=== PATIENT | female | born 1990 | race Caucasian/White ===

== ENCOUNTER → 2017-11-19 | Outpatient (CLI) | payer SELFPAY ==
--- NOTE | 2017-11-19 14:51 | RADIOLOGY REPORT (SQ) ---
EXAM DESCRIPTION: U/S [id number] TRNABD 1GES W/ODOP COMPLETED DATE/TIME: 11/19/2017 2:13 pm REASON FOR STUDY: ENCTR FOR SUPERVISION OF NORMAL 1ST , 1ST TRIMESTER (Z34.01) Z34.01 ENCN TR FOR SUPRVSN OF NORMAL FIRST PREG, FIRST TRIMES COMPARISON: None. TECHNIQUE: Transabdominal static and realtime grayscale images acquired of the pelvis. Additional se lected spectral and color Doppler images recorded. All images stored on PACs. bHCG: Not applicable. CLINICAL DATES: LMP 09/11/2017. 9 weeks 6 days. LIMITATIONS: None. FINDINGS: FETUS: Living intrauterine . ULTRASOUND EGA: 10 weeks 1 day ULTRASOUND MILLICENT: 06/16/2018 CRL: 3.2 cm. FHR: 163 beats per minute. SUBCHORIONIC BLEED: No SIZE OF BLEED: Not applicable. UTERUS: No masses or anomalies. 13 x 6.7 x 10.3 cm. CERVICAL LENGTH: 4.5 cm. Closed. RIGHT ADNEXA: Ovary not seen. No adnexal free fluid. No adnexal masses. LEFT ADNEXA: Ovary not seen. No adnexal free fluid. No adnexal masses. FREE FLUID: None. OTHER: No other significant finding. IMPRESSION: LIVING INTRAUTERINE . EGA 10 weeks 1 day Trimester of : First - 0 to 13 weeks. TECHNICAL DOCUMENTATION: JOB ID: [id number] [employer]- All Rights Reserved rev-09/03 Reading location - IP/workstation name: [email or web address]
== END ==
LOC: RAD 13:40
PROVIDERS: ATTEND Nurse Practitioner Women's Health
DX: Z34.01 Encounter for supervision of normal first pregnancy, first trimester (principal)
CPT/HCPCS: 76801

== ENCOUNTER 2018-06-12 18:20 | Inpatient (IN) | payer BC, OTHER ==
[2018-06-12] MEDS ORDERED: DINOPROSTONE 10 MG VAGINAL INSERT.SR PV PRN (18:37)
[2018-06-12] MEDS ORDERED: OXYTOCIN/NORMAL SALINE 20 UNIT/1,000 ML RTUINJ IV PRN (18:37)
[2018-06-12] MEDS ORDERED: RINGERS SOLUTION,LACTATED 300 ML IV ONE (19:00)
[2018-06-12 19:13] LABS: ABSOLUTE BASOPHILS # (AUTO) 0.1 10^3/uL (0.0-0.2); ABSOLUTE EOSINOPHILS # (AUTO) 0.2 10^3/uL (0.0-0.6); ABSOLUTE LYMPHOCYTES (AUTO) 1.5 10^3/uL (0.5-4.7); ABSOLUTE MONOCYTES (AUTO) 0.7 10^3/uL (0.1-1.4); ABSOLUTE NEUT (AUTO) 9.1 10^3/uL (1.7-8.2); BASOPHILS % (AUTO) 0.5 % (0-2); EOSINOPHILS % (AUTO) 1.7 % (0-6); HEMATOCRIT 33.7 % (36.0-47.0); HEMOGLOBIN 11.3 g/dL (12.0-15.5); LYMPHOCYTES % (AUTO) 12.7 % (13-45); MEAN CORPUSCULAR HEMOGLOBIN 27.1 pg (27.0-33.4); MEAN CORPUSCULAR HGB CONC 33.4 g/dL (32.0-36.0); MEAN CORPUSCULAR VOLUME 81 fl (80-97); MONOCYTES % (AUTO) 6.3 % (3-13); PLATELET COUNT 314 10^3/uL (150-450); RED BLOOD COUNT 4.15 10^6/uL (3.72-5.28); RED CELL DISTRIBUTION WIDTH 14.9 % (11.5-14.0); SEGMENTED NEUTROPHILS % (AUTO) 78.8 % (42-78); TOTAL CELLS COUNTED % (AUTO) 100 %; WHITE BLOOD COUNT 11.5 10^3/uL (4.0-10.5)
[2018-06-12 19:26] LABS: APPEARANCE,URINE SLIGHTLY-CLOUDY; BILIRUBIN,URINE NEGATIVE (NEGATIVE); COLOR,URINE YELLOW; GLUCOSE, URINE NEGATIVE (NEGATIVE); KETONES,URINE NEGATIVE (NEGATIVE); LEUKOCYTE ESTERASE,URINE TRACE (NEGATIVE); NITRITE,URINE NEGATIVE (NEGATIVE); PROTEIN,URINE NEGATIVE (NEGATIVE); URINE SPECIFIC GRAVITY 1.009; UROBILINOGEN,URINE NEGATIVE mg/dL (<2.0)
[2018-06-12] MEDS ORDERED: DINOPROSTONE 10 MG VAGINAL INSERT.SR ONE (19:36)
[2018-06-12 19:42] LABS: URINE AMPHETAMINES SCREEN NEGATIVE; URINE BARBITURATES SCREEN NEGATIVE; URINE BENZODIAZEPINES SCREEN NEGATIVE; URINE COCAINE SCREEN NEGATIVE; URINE MARIJUANA (THC) SCREEN NEGATIVE; URINE METHADONE SCREEN NEGATIVE; URINE PHENCYCLIDINE SCREEN NEGATIVE
[2018-06-12] MEDS: RINGERS SOLUTION,LACTATED 1,000 ML IV PRN (19:45)
[2018-06-12] MEDS ORDERED: ZOLPIDEM TARTRATE 5 MG TABLET ONE (22:27)
[2018-06-12] MEDS ORDERED: ZOLPIDEM TARTRATE 5 MG TABLET PO ONE (23:00)
[2018-06-13] MEDS: RINGERS SOLUTION,LACTATED 1,000 ML IV PRN (06:37)
[2018-06-13] MEDS ORDERED: OXYTOCIN/NORMAL SALINE 20 UNIT/1,000 ML RTUINJ ONE (09:18)
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
[2018-06-13] MEDS ORDERED: OXYTOCIN/NORMAL SALINE 20 UNIT/1,000 ML RTUINJ IV PRN (18:30)
[2018-06-13] MEDS ORDERED: ZOLPIDEM TARTRATE 5 MG TABLET PO PRN (18:30)
[2018-06-13] MEDS ORDERED: MAG HYDROX/AL HYDROX/SIMETH SUSP 30 ML UDCUP PO PRN (18:30)
[2018-06-13] MEDS ORDERED: ACETAMINOPHEN 325 MG TABLET PO PRN (18:30)
[2018-06-13] MEDS ORDERED: DINOPROSTONE 10 MG VAGINAL INSERT.SR ONE (19:55)
[2018-06-13] MEDS ORDERED: DINOPROSTONE 10 MG VAGINAL INSERT.SR PV ONE (20:00)
[2018-06-13] MEDS ORDERED: ZOLPIDEM TARTRATE 5 MG TABLET ONE (22:02)
[2018-06-14] MEDS: RINGERS SOLUTION,LACTATED 1,000 ML IV PRN ×2 (09:41→21:02)
[2018-06-14] MEDS ORDERED: OXYTOCIN/NORMAL SALINE 20 UNIT/1,000 ML RTUINJ ONE (11:58)
--- NOTE | 2018-06-14 12:33 | L&D Progress Notes ---
PROGRESS NOTES Datetime Report Generated by CPN: 06/14/2018 12:32 PROGRESS NOTE Impression: Normal Progression of Labor Procedures: Sterile Vag Exam Plan: Continue Present Management; Induction; Cervical Ripening Informed Consent Obtained: Vaginal Delivery; Induction of Labor; Risks, Benefits and Alternatives Discussed Vital Signs : Reviewed Comment: Here for day two of IOL. Cvx 1/50/-3 and posterior but soft. Cooks catheter placed. Anticipate . VAGINAL EXAM Dilatation: 1 Effacement: 50 Station: -3 Contractions: q 2-5 Contractions: q 1.5-3.5 mins LAST VAGINAL EXAM-NURSING Dilitation: 1.0 Dilitation: 0.5 Dilitation: 0.5 Dilitation: ft Dilitation: closed Effacement: 70 Effacement: 70-80 Effacement: long Effacement: TH Station: -2 Station: -3 Station: -3 Station: HIGH Contractions: with irritability Contractions: irregular pattern Contractions: pt. aware of ctn's Contractions: pt. denies feeling ctn's MEMBRANES Membranes: Intact Membranes: Intact FETUS A FHR - Baseline: 135 Monitoring: External US Variability: Moderate 6-25bpm Accelerations: 15X15 Decelerations: None FHR Category: Category I : 39+2 Estimated Weight (gm): 3400 Presentation: Vertex SIGNATURE SIGNATURE: [id number];,[id number] SIGNATURE: [id number] Signature: with User ID: [email or web address]
[2018-06-14] MEDS ORDERED: OXYTOCIN/NORMAL SALINE 20 UNIT/1,000 ML RTUINJ IV PRN (12:40)
[2018-06-14] MEDS ORDERED: NALBUPHINE HCL INJ 10 MG/1 ML AMPULE ONE (15:34)
[2018-06-14] MEDS ORDERED: NALBUPHINE HCL INJ 10 MG/1 ML AMPULE INJ ONE (15:34)
[2018-06-14] MEDS ORDERED: EPHEDRINE SULFATE INJ 50 MG/1 ML AMPULE ONE (18:11)
[2018-06-14] MEDS ORDERED: FENTANYL/BUPIVACAINE/NS/PF 300 MCG/150 ML RTUINJ EPI ONE (18:11)
[2018-06-14] MEDS ORDERED: LIDOCAINE 1.5%/EPINEPHRINE INJ-PF 30 ML SDV ONE (18:12)
[2018-06-14] MEDS ORDERED: BUPIVACAINE HCL 0.25 % INJ/PF (2.5 MG/1 ML) 30 ML VIAL ONE (18:12)
--- NOTE | 2018-06-14 18:29 | L&D Progress Notes ---
PROGRESS NOTES Datetime Report Generated by CPN: 06/14/2018 18:29 PROGRESS NOTE Impression: Normal Progression of Labor Procedures: Sterile Vag Exam Plan: Continue Present Management; Induction; Cervical Ripening Informed Consent Obtained: Vaginal Delivery; Induction of Labor; Risks, Benefits and Alternatives Discussed Vital Signs : Reviewed Comment: pt with more discomfort with contractions. SVE with both bulbs in vagina noted. Cooks deflated and removed. Will complete cervical exam after patient obtains epidural and plan for possibel AROM. Anticipate . LAST VAGINAL EXAM-NURSING Contractions: irregular pattern noted MEMBRANES Membranes: Intact FETUS A FHR - Baseline: 125 Monitoring: External US Variability: Moderate 6-25bpm Accelerations: 15X15 Decelerations: None FHR Category: Category I SIGNATURE SIGNATURE: [id number];[id number] Signature: with User ID: [email or web address]
[2018-06-14] MEDS ORDERED: MISOPROSTOL 0.2 MG TABLET ONE (19:29)
[2018-06-14] MEDS ORDERED: LIDOCAINE 1% INJ-PF (10 MG/ML) 30 ML SDV ONE (19:30)
[2018-06-15] MEDS ORDERED: PSEUDOEPHEDRINE HCL 30 MG TABLET PO PRN (00:32)
[2018-06-15] MEDS ORDERED: PROMETHAZINE HCL 25 MG TABLET PO PRN (00:32)
[2018-06-15] MEDS ORDERED: MAGNESIUM HYDROXIDE SUSP 30 ML UDCUP PO PRN (00:32)
[2018-06-15] MEDS ORDERED: DIPHENHYDRAMINE HCL 25 MG CAPSULE PO PRN (00:32)
[2018-06-15] MEDS ORDERED: PROMETHAZINE HCL 25 MG SUPP.RECT PR PRN (00:32)
[2018-06-15] MEDS ORDERED: ACETAMINOPHEN WITH CODEINE #3 TABLET PO PRN (00:32)
[2018-06-15] MEDS ORDERED: OXYTOCIN/NORMAL SALINE 20 UNIT/1,000 ML RTUINJ IV PRN (00:32)
[2018-06-15] MEDS ORDERED: NA PHOS,M-B/NA PHOS,DI-BA (ADULT) 133 ML ENEMA PR PRN (00:32)
[2018-06-15] MEDS ORDERED: ACETAMINOPHEN 650 MG SUPP.RECT PR PRN (00:32)
[2018-06-15] MEDS ORDERED: PROMETHAZINE HCL INJ 25 MG/1 ML VIAL IV PRN (00:32)
[2018-06-15] MEDS ORDERED: ZOLPIDEM TARTRATE 5 MG TABLET PO PRN (00:32)
[2018-06-15] MEDS ORDERED: MEASLES,MUMPS&RUBELLA VACC/PF 0.5 ML VIAL SUBCUT PRN (00:32)
[2018-06-15] MEDS ORDERED: GLYCERIN/WITCH HAZEL LEAF 1 EACH MED..PAD TP PRN (00:32)
[2018-06-15] MEDS ORDERED: DIBUCAINE 1% OINTMENT 28 GM TP PRN (00:32)
[2018-06-15] MEDS ORDERED: BENZOCAINE/MENTHOL AEROSOL SPRAY 56 ML TOP PRN (00:32)
[2018-06-15] MEDS ORDERED: MISOPROSTOL 0.2 MG TABLET PR PRN (00:32)
[2018-06-15] MEDS ORDERED: DIPH/PERTUSS(ACELL)/TETANUS VAC/PF 0.5 ML SYR (>=10YO) IM PRN (00:32)
--- NOTE | 2018-06-15 00:57 | Warning Signs in Babies ---
VOD Warning Signs Datetime Report Generated by [facility]: 06/15/2018 00:56 VOD#608 -Warning Signs in Babies: Viewed with Parent(s)/Family (06/15/2018 00:30:Emmanuelle Valentino RN)
[2018-06-15] MEDS ORDERED: IBUPROFEN 800 MG TABLET PO ONE (01:00)
[2018-06-15] MEDS ORDERED: BENZOCAINE/MENTHOL AEROSOL SPRAY 56 ML ONE (01:07)
--- NOTE | 2018-06-15 02:31 | Delivery Summary ---
Del Sum A-C Datetime Report Generated by CPN: 06/15/2018 02:31 DELIVERY PERSONNEL DELIVERY PERSONNEL: [id number] Delivery Doctor:: Kenya Hoang MD Labor and Delivery Nurse:: Emmanuelle Valentino RN Nursery Nurse:: Tammie Wolff RN Dock Coordinator/HORSE STUD WORKER: Jeni Baires, TENONER OPERATOR Additional Personnel: : Susana Art RN MATERNAL INFORMATION Delivery Anesthesia: Epidural Medications After Delivery: Pitocin Drip 20 Units/1000ml NSS; Cytotec 1000mcg Per Rectum/Vagina Maternal Complications: None Provider Comments: VFI delivered in CED presentation with nuchal cord delivered through. Shoulders and body delivered without difficulty. cord doubly clamped and cut and to maternal abdomen for NRP. Placenta delivered intact spontaneously. 2nd degree perineal laceration repaired in usual fashion. Mother and baby stable upon provider leaving the room. Cytotec 1000mcg given CA for uterine tone. LABOR SUMMARY EDC: 06/18/2018 00:00 No. Babies in Womb: 1 Attempted: No Labor Anesthesia: Epidural LABOR INFORMATION Reason for Induction: Oligohydramnios Onset of Labor: 06/14/2018 19:46 Complete Dilatation: 06/14/2018 23:39 Cervical Ripening Agents: Cervidil Other Ripening Agents: cooks, pitocin Oxytocin: Induction Group B Beta Strep: Negative Antibiotics # of Doses: 0 Antibiotics Time of Last Dose: N/A Steroids Given: None Reason Steroids Not Administered: Not Applicable MEMBRANES Membranes Rupture Method: Spontaneous Rupture of Membranes: 06/14/2018 19:36 Length of Rupture (hr): 4.13 Amniotic Fluid Color: Clear Amniotic Fluid Amount: Moderate Amniotic Fluid Odor: Normal STAGES OF LABOR Stage 1 hr: 3 Stage 1 min: 53 Stage 2 hr: 0 Stage 2 min: 5 Stage 3 hr: 24 Stage 3 min: 4 Total Time in Labor hr: 28 Total Time in Labor min: 2 VAGINAL DELIVERY Episiotomy: None Laceration #1: Perineal Laceration Extension #1: Second Degree Laceration Repair: Yes Laceration Repair Note: 2nd degree perineal laceration repaired in usual fashion Sponge Count Correct: N/A Sharps Count Correct: N/A CSECTION DELIVERY Primary Indication: N/A Secondary Indication: N/A CSection Incidence: N/A Labor: N/A Elective: N/A CSection Incision: N/A BABY A INFORMATION Infant Delivery Date/Time: 06/14/2018 23:44 Method of Delivery: Vaginal Born in Route : No : N/A Forceps: N/A Vacuum Extraction: N/A Shoulder Dystocia : No PRESENTATION/POSITION BABY A Presentation: Cephalic Cephalic Presentation: Vertex Vertex Position: Right Occipital Anterior Breech Presentation: N/A PLACENTA INFORMATION BABY A Placenta Delivery Time : 06/15/2018 23:48 Placenta Method of Delivery: Spontaneous Placenta Status: Delivered SCORES BABY A Heart Rate 1 min: >100 bpm Resp Effort 1 min: Good Cry Reflex Irritability 1 min: Cough or Sneeze or Pulls Away Muscle Tone 1 min: Active Motion Color 1 min: Body [place], Extremities Blue Resuscitation Effort 1 min: Tactile Stimulation SCORE 1 MIN: 9 Heart Rate 5 min: >100 bpm Resp Effort 5 min: Good Cry Reflex Irritability 5 min: Cough or Sneeze or Pulls Away Muscle Tone 5 min: Active Motion Color 5 min: Body [place], Extremities Blue Resuscitation Effort 5 min: N/A SCORE 5 MIN: 9 INFANT INFORMATION BABY A Gestational Age at Delivery: 39.3 Gestational Status: Full Term- 39- 40.6 Weeks Infant Outcome : Liveborn Condition : Stable Sex: Female IDENTIFICATION BABY A Verification Date/Time: 06/15/2018 00:09 ID Band Number: [id number] Mother's Name Verified: Yes Infant RN Verifying : Dirk Valentino RN Additional Verifying Personnel: [employer] ST CORD INFORMATION BABY A No. Cord Vessels: 3 Nuchal Cord : Around Neck x1, Loose Cord Blood Taken: Yes-For Storage (Mom's Blood type +) Suction: None ASSESSMENT BABY A Infant Complications: None Physical Findings at Delivery: Within Normal Limits Infant Respirations: Appears Normal Community Marketing Manager/ALS Called : No Care By: Rachael Wolff RN Transferred To: Remains with Mother BABY B INFORMATION : N/A SIGNATURES Signature: with User ID: Gila Durant I was personally available for consultation and serving as supervising physician for the MLP.
[2018-06-15] MEDS: ACETAMINOPHEN WITH CODEINE #3 TABLET PO PRN ×2 (05:02→17:42)
[2018-06-15] MEDS: IBUPROFEN 800 MG TABLET PO SCH ×3 (07:10→21:46)
[2018-06-15 10:12] LABS: HEMATOCRIT 28.6 % (36.0-47.0); HEMOGLOBIN 9.6 g/dL (12.0-15.5); MEAN CORPUSCULAR HEMOGLOBIN 27.3 pg (27.0-33.4); MEAN CORPUSCULAR HGB CONC 33.6 g/dL (32.0-36.0); MEAN CORPUSCULAR VOLUME 81 fl (80-97); PLATELET COUNT 258 10^3/uL (150-450); RED BLOOD COUNT 3.52 10^6/uL (3.72-5.28); RED CELL DISTRIBUTION WIDTH 15.3 % (11.5-14.0); WHITE BLOOD COUNT 17.2 10^3/uL (4.0-10.5)
[2018-06-15] MEDS: SENNOSIDES/DOCUSATE 8.6-50 MG 1 EACH TABLET PO SCH (10:26)
[2018-06-15] MEDS: DOCUSATE SODIUM 100 MG CAPSULE PO SCH ×2 (10:26→17:32)
[2018-06-15] MEDS: PRENATAL VITAMIN W DHA CAPSULE PO SCH (10:26)
[2018-06-15] MEDS: FERROUS SULFATE 325 MG TABLET PO SCH ×2 (10:26→17:32)
[2018-06-15] MEDS: FAMOTIDINE 20 MG TABLET PO SCH ×2 (10:26→21:47)
--- NOTE | 2018-06-15 11:26 | PDOC PROGRESS REPORT ---
Subjective-OB Progress Note for:: 06/15/18 Subjective: 28yo G1 now P1 s/p ppd1. Pt. ambulating, and voiding without difficulty. Denies any concerns today besides perineal soreness Physical Exam (OB) Vital Signs: Temp Pulse Resp BP Pulse Ox 98.9 F 110 H 16 111/63 99 06/15/18 07:13 06/15/18 07:13 06/15/18 07:13 06/15/18 07:13 06/15/18 07:13 Intake & Output 06/14/18 06/15/18 06/16/18 06:59 06:59 06:59 Intake Total 1000 1000 Balance 1000 1000 - General General Appearance: Appears well In distress: None - PIH/Pre-Eclampsia Clonus: Negative Headache: Absent Epigastric Pain: No Visual Changes: No - Episiotomy/Laceration Site Condition: Well Approximated - Lochia Lochia Amount: Scant < 10 ml Lochia Color: Rubra/Red - Abdomen Description: Soft, Round Fundal Description: Firm Fundal Height: u/u - u/2 - Respiratory Respiratory Status: No respiratory distress - Extremities Upper extremity: Normal inspection Lower extremities: Normal inspection - Neurological Cognition: Normal Orientation: AAOx4 - Psychological Associated symptoms: Normal affect, Normal mood Objective-Diagnostic Laboratory: 06/15/18 10:03 06/15/18 10:03 WBC 17.2 H RBC 3.52 L Hgb 9.6 L Hct 28.6 L MCV 81 MCH 27.3 MCHC 33.6 RDW 15.3 H Plt Count 258 Assessment and Plan(PN) - Assessment and Plan (1) Acute blood loss anemia Is this a current diagnosis for this admission?: Yes Plan: Increase dietary iron and FeSO4 BID (2) Obstetrical laceration, second degree Is this a current diagnosis for this admission?: Yes Plan: Continue to monitor for s/s of infection (3) Vaginal delivery Is this a current diagnosis for this admission?: Yes Plan: Routine pp care - Time Spent with Patient Time with patient: Less than 15 minutes Medications reviewed and adjusted accordingly: Yes - Disposition Anticipated Discharge: Home Within: within 24 hours
[2018-06-16] MEDS: IBUPROFEN 800 MG TABLET PO SCH (05:20)
[2018-06-16 06:44] LABS: HEMATOCRIT 25.6 % (36.0-47.0); HEMOGLOBIN 8.7 g/dL (12.0-15.5); MEAN CORPUSCULAR HEMOGLOBIN 27.6 pg (27.0-33.4); MEAN CORPUSCULAR HGB CONC 33.8 g/dL (32.0-36.0); MEAN CORPUSCULAR VOLUME 82 fl (80-97); PLATELET COUNT 243 10^3/uL (150-450); RED BLOOD COUNT 3.15 10^6/uL (3.72-5.28); RED CELL DISTRIBUTION WIDTH 15.2 % (11.5-14.0); WHITE BLOOD COUNT 10.6 10^3/uL (4.0-10.5)
[2018-06-16 07:46] VITALS: BP 111/62
--- NOTE | 2018-06-16 10:15 | PDOC PROGRESS REPORT ---
Subjective-OB Progress Note for:: 06/16/18 Subjective: Ready for discharge. Physical Exam (OB) Vital Signs: Temp Pulse Resp BP Pulse Ox 97.9 F 66 18 111/62 99 06/16/18 07:15 06/16/18 07:15 06/16/18 07:15 06/16/18 07:15 06/16/18 07:15 Intake & Output 06/15/18 06/16/18 06/17/18 06:59 06:59 06:59 Intake Total 1000 240 Balance 1000 240 - PIH/Pre-Eclampsia Clonus: Negative Headache: Absent Epigastric Pain: No Visual Changes: No - Lochia Lochia Amount: Scant < 10 ml Lochia Color: Rubra/Red - Abdomen Description: Soft, Round Hernia Present: No Bowel Sounds: Normoactive Flatus Presence: Present Stool: Yes Fundal Description: Firm Fundal Height: u/u - u/2 Objective-Diagnostic Laboratory: 06/16/18 06:20 06/15/18 06/16/18 10:03 06:20 WBC 17.2 H 10.6 H RBC 3.52 L 3.15 L Hgb 9.6 L 8.7 L Hct 28.6 L 25.6 L MCV 81 82 MCH 27.3 27.6 MCHC 33.6 33.8 RDW 15.3 H 15.2 H Plt Count 258 243 Assessment and Plan(PN) - Time Spent with Patient Medications reviewed and adjusted accordingly: Yes - Disposition Anticipated Discharge: Home
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
[2018-06-16] MEDS: DOCUSATE SODIUM 100 MG CAPSULE PO SCH (10:55)
[2018-06-16] MEDS: FAMOTIDINE 20 MG TABLET PO SCH (10:55)
[2018-06-16] MEDS: PRENATAL VITAMIN W DHA CAPSULE PO SCH (10:55)
[2018-06-16] MEDS: FERROUS SULFATE 325 MG TABLET PO SCH (10:55)
[2018-06-16] MEDS: SENNOSIDES/DOCUSATE 8.6-50 MG 1 EACH TABLET PO SCH (10:55)
== END 2018-06-16 13:21 | disposition home or self-care (01) | DRG 806 ==
LOC: LR 18:20 → 2S 06-15 01:57
PROVIDERS: ADMIT Student in an Organized Health Care Education/Training Program; ATTEND Student in an Organized Health Care Education/Training Program
PROC: 10E0XZZ Delivery of Products of Conception, External Approach (ICD-10-PCS; principal; 2018-06-14)
PROC: 0KQM0ZZ Repair Perineum Muscle, Open Approach (ICD-10-PCS; 2018-06-14)
DX: O41.03X0 Oligohydramnios, third trimester, not applicable or unspecified (principal); D62 Acute posthemorrhagic anemia; Z37.0 Single live birth; O69.81X0 Labor and delivery complicated by cord around neck, without compression, not applicable or unspecified; O99.52 Diseases of the respiratory system complicating childbirth; J45.909 Unspecified asthma, uncomplicated; O99.344 Other mental disorders complicating childbirth; F41.8 Other specified anxiety disorders; O70.1 Second degree perineal laceration during delivery; Z3A.39 39 weeks gestation of pregnancy; O90.81 Anemia of the puerperium
CPT/HCPCS: 36415; 80307; 81005; 85025; 85027; 86592; 86850; 86900; 86901; C1726; J2300; J2590; J3010; J3490

== ENCOUNTER 2018-08-02 15:31 | Observation (INO) | payer OTHER ==
[2018-08-02] MEDS ORDERED: KETOROLAC TROMETHAMINE INJ/PF 30 MG/1 ML SDV IV ONE (16:22)
[2018-08-02] MEDS ORDERED: ONDANSETRON HCL INJ/PF 4 MG/2 ML SDV IV ONE ×2 (16:23→20:53)
--- NOTE | 2018-08-02 16:24 | ER Document Report ---
ED Medical Screen (RME) - General Chief Complaint: Abdominal Pain Stated Complaint: ABDOMINAL PAIN Time Seen by Provider: 08/02/18 16:17 Primary Care Provider: PAVEL MENJIVAR PA-C [Primary Care Provider] - Follow up as needed Mode of Arrival: Ambulatory Information source: Patient TRAVEL OUTSIDE OF THE [place] IN LAST 30 DAYS: No - HPI Patient complains to provider of: upper abdo pain Notes: 08/02/18 16:23 Patient is here with complaints of upper abdominal pain with nausea vomiting. No fevers. No diarrhea. No dysuria or hematuria. Recently had a baby in May. No prior abdominal surgeries. No chest pain or shortness of breath. Exam Nontoxic appearing, no distress, tenderness to the epigastric and right upper quadrant. No lower abdominal tenderness on limited triage exam. Lungs clear. Plan CBC, CMP, lipase, urine, urine , ultrasound of the right upper quadrant. Toradol and Zofran have been ordered. An initial examination was made on the patient as part of the triage process, and it was determined a more comprehensive evaluation was necessary. Initial labs were ordered and patient was transferred to another provider in the ED who assumed care and finished evaluation and plan. - Related Data Allergies/Adverse Reactions: No Known Allergies Allergy (Verified 08/02/18 15:34) Past Medical History Renal/ Medical History: Denies: Hx Peritoneal Dialysis Physical Exam - Vital signs Vitals: Temp Pulse Resp BP Pulse Ox 98.3 F 67 16 144/87 H 99 08/02/18 15:51 08/02/18 15:51 08/02/18 15:51 08/02/18 15:51 08/02/18 15:51 Course - Vital Signs Vital signs: Temp Pulse Resp BP Pulse Ox 98.3 F 67 16 144/87 H 99 08/02/18 15:51 08/02/18 15:51 08/02/18 15:51 08/02/18 15:51 08/02/18 15:51 Doctor's Discharge - Discharge Referrals: PAVEL MENJIVAR PA-C [Primary Care Provider] - Follow up as needed
[2018-08-02 17:08] LABS: ABSOLUTE BASOPHILS # (AUTO) 0.1 10^3/uL (0.0-0.2); ABSOLUTE EOSINOPHILS # (AUTO) 0.5 10^3/uL (0.0-0.6); ABSOLUTE LYMPHOCYTES (AUTO) 1.1 10^3/uL (0.5-4.7); ABSOLUTE MONOCYTES (AUTO) 0.6 10^3/uL (0.1-1.4); ABSOLUTE NEUT (AUTO) 7.9 10^3/uL (1.7-8.2); BASOPHILS % (AUTO) 0.6 % (0-2); EOSINOPHILS % (AUTO) 4.8 % (0-6); HEMATOCRIT 37.4 % (36.0-47.0); HEMOGLOBIN 12.4 g/dL (12.0-15.5); LYMPHOCYTES % (AUTO) 10.4 % (13-45); MEAN CORPUSCULAR HEMOGLOBIN 26.1 pg (27.0-33.4); MEAN CORPUSCULAR HGB CONC 33.2 g/dL (32.0-36.0); MEAN CORPUSCULAR VOLUME 79 fl (80-97); MONOCYTES % (AUTO) 5.7 % (3-13); PLATELET COUNT 389 10^3/uL (150-450); RED BLOOD COUNT 4.76 10^6/uL (3.72-5.28); RED CELL DISTRIBUTION WIDTH 15.6 % (11.5-14.0); SEGMENTED NEUTROPHILS % (AUTO) 78.5 % (42-78); TOTAL CELLS COUNTED % (AUTO) 100 %; WHITE BLOOD COUNT 10.1 10^3/uL (4.0-10.5)
[2018-08-02 17:11] LABS: APPEARANCE,URINE SLIGHTLY-CLOUDY; BILIRUBIN,URINE NEGATIVE (NEGATIVE); COLOR,URINE YELLOW; GLUCOSE, URINE NEGATIVE (NEGATIVE); KETONES,URINE NEGATIVE (NEGATIVE); LEUKOCYTE ESTERASE,URINE LARGE (NEGATIVE); NITRITE,URINE NEGATIVE (NEGATIVE); PROTEIN,URINE NEGATIVE (NEGATIVE); URINE SPECIFIC GRAVITY 1.012; UROBILINOGEN,URINE NEGATIVE mg/dL (<2.0)
[2018-08-02 17:26] LABS: ALANINE AMINOTRANSFERASE 49 U/L (9-52); ALBUMIN 4.5 g/dL (3.5-5.0); ALKALINE PHOSPHATASE 97 U/L (38-126); ANION GAP 10 (5-19); ASPARTATE AMINO TRANSFERASE 24 U/L (14-36); BILIRUBIN,DIRECT 0.2 mg/dL (0.0-0.4); BILIRUBIN,TOTAL 0.3 mg/dL (0.2-1.3); BLOOD UREA NITROGEN 12 mg/dL (7-20); CALCIUM 10.1 mg/dL (8.4-10.2); CARBON DIOXIDE 28 mmol/L (22-30); CHLORIDE 100 mmol/L (98-107); GLUCOSE 96 mg/dL (75-110); LIPASE 81.6 U/L (23-300); POTASSIUM 4.3 mmol/L (3.6-5.0); SODIUM 137.8 mmol/L (137-145); TOTAL PROTEIN 7.7 g/dL (6.3-8.2)
--- NOTE | 2018-08-02 18:05 | RADIOLOGY REPORT (SQ) ---
EXAM DESCRIPTION: U/S ABDOMEN LIMITED W/O DOP COMPLETED DATE/TIME: 08/02/2018 5:32 pm REASON FOR STUDY: RUQ pain COMPARISON: None. TECHNIQUE: Dynamic and static grayscale images acquired of the abdomen and recorded on PACS. Additio darren selected color Doppler and spectral images recorded. LIMITATIONS: None. FINDINGS: PANCREAS: No masses. Visualized pancreatic duct normal caliber. LIVER: No masses. Echotexture normal. LIVER VASCULATURE: Normal directional flow of the main portal vein and hepatic veins. GALLBLADDER: Distended. Small gallstones. No wall thickening or pericholecystic fluid. ULTRASOUND-DETECTED ESTRADA'S SIGN: Negative. INTRAHEPATIC DUCTS AND COMMON DUCT: CBD and intrahepatic ducts normal caliber. No filling defects. INFERIOR VENA CAVA: Not imaged. AORTA: No aneurysm. RIGHT KIDNEY: Normal size, 10 cm. Normal echogenicity. No solid or suspicious masses. No hydronephro sis. No calcifications. PERITONEAL AND RIGHT PLEURAL SPACE: No ascites or effusions. OTHER: No other significant findings. IMPRESSION: Cholelithiasis. No evidence cholecystitis. TECHNICAL DOCUMENTATION: JOB ID: [id number] [employer]- All Rights Reserved Reading location - IP/workstation name: [email or web address]
[2018-08-02] MEDS ORDERED: MORPHINE SULFATE 10 MG/ML INJ IV ONE ×2 (20:19→21:57)
[2018-08-02] MEDS ORDERED: ONDANSETRON HCL INJ/PF 4 MG/2 ML SDV ONE (20:48)
[2018-08-02] MEDS ORDERED: NORMAL SALINE 1000 ML 1,000 ML IV ONE (23:33)
[2018-08-03] MEDS ORDERED: MORPHINE SULFATE 10 MG/ML INJ IV ONE (00:09)
--- NOTE | 2018-08-03 00:10 | ER Document Report ---
ED General - General Chief Complaint: Abdominal Pain Stated Complaint: ABDOMINAL PAIN Time Seen by Provider: 08/02/18 16:17 Mode of Arrival: Ambulatory Notes: Patient is a pleasant 28-year-old female presents with complaint of right upper quadrant abdominal pain. No states on Wednesday. She vomited and felt better and it went away. Today she has had it continuously. It started initially after she eats [employer] lunch and has been nonstop with the pain and nausea. Some vomiting. Pain did not improve with vomiting this time. No fevers. No previous history abdominal surgeries. She did deliver a baby back in May but has not had any significant complications. TRAVEL OUTSIDE OF THE [place] IN LAST 30 DAYS: No - Related Data Allergies/Adverse Reactions: No Known Allergies Allergy (Verified 08/02/18 15:34) Past Medical History - General Information source: Patient - Social History Smoking Status: Never Smoker Frequency of alcohol use: None Drug Abuse: None Family History: Reviewed & Not Pertinent Patient has suicidal ideation: No Patient has homicidal ideation: No Renal/ Medical History: Denies: Hx Peritoneal Dialysis Review of Systems - Review of Systems Notes: My Normal Review Basic REVIEW OF SYSTEMS: CONSTITUTIONAL : Denies fever, chills, or sweats. Denies recent illness. CARDIOVASCULAR: Denies chest pain. RESPIRATORY: Denies cough, cold, or chest congestion. Denies shortness of breath, difficulty breathing, or wheezing. GASTROINTESTINAL: Right upper quadrant abdominal pain. Vomiting. GENITOURINARY: Denies difficulty urinating, painful urination, burning, frequency, or blood in urine. FEMALE GENITOURINARY: Denies vaginal bleeding, abnormal or irregular periods. LMP: MUSCULOSKELETAL: Denies neck or back pain or joint pain or swelling. SKIN: Denies rash or skin lesions. NEUROLOGICAL: Denies altered mental status or loss of consciousness. Denies headache. Denies weakness or paralysis or loss of use of either side. Denies problems with gait or speech. Denies sensory or motor loss. ALL OTHER SYSTEMS REVIEWED AND NEGATIVE. Physical Exam - Vital signs Vitals: Temp Pulse Resp BP Pulse Ox 98.3 F 67 16 144/87 H 99 08/02/18 15:51 08/02/18 15:51 08/02/18 15:51 08/02/18 15:51 08/02/18 15:51 - Notes Notes: General Appearance: Well nourished, alert, cooperative, no acute distress, mild to moderate obvious discomfort. Vitals: reviewed, See vital signs table. Head: no swelling or tenderness to the head Eyes: PERRL, EOMI, Conjuctiva clear Mouth: No decreasd moisture Lungs: No wheezing, No rales, No rhonci, No accessory muscle use, good air exchange bilaterally. Heart: Normal rate, Regular rythm, No murmur, no rub Abdomen: Normal BS, soft, No rigidity, moderate right upper quadrant dull tenderness to palpation. Extremities: strength 5/5 in all extremities, good pulses in all extremities, no swelling or tenderness in the extremities, no edema. Skin: warm, dry, appropriate color, no rash Neuro: speech clear, oriented x 3, normal affect, responds appropriately to questions. Course - Re-evaluation Re-evalutation: 08/03/18 00:10 Patient has cholelithiasis without evidence of cholecystitis. Reevaluation patient does have pain to palpation over the right upper quadrant of the abdomen. She has required couple dose pain medicine. She is now requiring more pain medicine. She is good initially when she receives pain medicine but the pain comes back. I therefore did speak with Dr. Maddox, general surgeon, who agrees to evaluate the patient. Dictation of this chart was performed using voice recognition software; therefore, there may be some unintended grammatical errors. 08/03/18 04:28 - Vital Signs Vital signs: Temp Pulse Resp BP Pulse Ox 98.0 F 74 16 144/86 H 99 08/03/18 00:06 08/03/18 00:06 08/03/18 00:06 08/03/18 00:06 08/03/18 00:06 - Laboratory Result Diagrams: 08/02/18 16:20 08/02/18 16:20 Laboratory results interpreted by me: 08/02/18 08/02/18 16:20 16:20 MCV 79 L MCH 26.1 L RDW 15.6 H Seg Neutrophils % 78.5 H Lymphocytes % 10.4 L Urine Blood SMALL H Ur Leukocyte Esterase LARGE H Discharge - Discharge Clinical Impression: Cholelithiasis Qualifiers: Cholelithiasis location: gallbladder Cholecystitis presence: without cholecystitis Biliary obstruction: without biliary obstruction Qualified Code(s): K80.20 - Calculus of gallbladder without cholecystitis without obstruction Condition: Stable Disposition: ADMITTED OBSERVATION Admitting Provider: Surgicalist Unit Admitted: Surgical Floor
[2018-08-03] MEDS ORDERED: MORPHINE SULFATE 10 MG/ML INJ IV PRN (00:46)
[2018-08-03] MEDS ORDERED: ONDANSETRON HCL INJ/PF 4 MG/2 ML SDV IV PRN (00:46)
[2018-08-03] MEDS ORDERED: DEXTROSE 5%-LACTATED RINGERS 1,000 ML IV PRN (00:46)
[2018-08-03] MEDS ORDERED: PIPERACILLIN/TAZOBACTAM 3.375 GM VIAL IV PRN (00:59)
--- NOTE | 2018-08-03 00:59 | PDOC H&P ---
History of Present Illness Admission Date/PCP: PAVEL MENJIVAR PA-C Patient complains of: Right upper quadrant pain, unrelenting History of Present Illness: JANET GARCIA is a 28 year old female with a one-month history of colicky right upper quadrant pain. Until today, she has not been able to positively identify a causative agent. This morning she had a cappuccino and a bagel and began having right upper quadrant discomfort. It persisted through the morning. At lunchtime she had Hernandez's which caused severe, stabbing, unrelenting right upper quadrant pain that radiated around to her flank and shoulder blade on the right. The patient's pain has persisted since then. The only thing that makes it better is narcotic pain medication. Palpation and eating make it worse. The patient has had nausea and vomiting today. She reports that her vomitus is bilious. The patient takes Nexium on a daily basis. She denies taking any steroids or anti-inflammatory drugs. She does not consume large amounts of caffeine. The patient denies chest pain, shortness of breath, fevers, chills, melena, hematochezia, hematemesis, blurry vision, orthostasis, headache. Past Medical History GI Medical History: Reports: Gastroesophageal Reflux Disease Psychiatric Medical History: Reports: Depression Past Surgical History Past Surgical History: Reports: None Social History Smoking Status: Never Smoker Frequency of Alcohol Use: None Family History Family History: Reviewed & Not Pertinent Parental Family History Reviewed: Yes Children Family History Reviewed: Yes Sibling(s) Family History Reviewed.: Yes Medication/Allergy Home Medications: Esomeprazole Magnesium [Nexium 24Hr] 20 mg PO DAILY 06/12/18 Vits96/Iron Fum/Folic [ Tablet] 1 each PO DAILY 06/12/18 Ferrous Sulfate [Feosol 325 mg Tablet] 325 mg PO BID #60 tablet 06/16/18 Allergies/Adverse Reactions: No Known Allergies Allergy (Verified 08/02/18 15:34) Review of Systems Constitutional: ABSENT: anorexia, chills, fatigue, fever(s), headache(s) Eyes: ABSENT: visual disturbances Ears: ABSENT: hearing changes Nose, Mouth, and Throat: ABSENT: sore throat Cardiovascular: ABSENT: chest pain, dyspnea on exertion, edema Respiratory: ABSENT: cough, dyspnea Gastrointestinal: PRESENT: abdominal pain, nausea, vomiting. ABSENT: melena Genitourinary: ABSENT: dysuria Musculoskeletal: ABSENT: back pain Integumentary: ABSENT: pruritus, rash Neurological: ABSENT: confusion, convulsions, dizziness, focal weakness, frequent falls Psychiatric: PRESENT: depression. ABSENT: anxiety Endocrine: ABSENT: cold intolerance, heat intolerance Hematologic/Lymphatic: ABSENT: easy bleeding, easy bruising Physical Exam Vital Signs: Temp Pulse Resp BP Pulse Ox 98.0 F 74 16 144/86 H 99 08/03/18 00:06 08/03/18 00:06 08/03/18 00:06 08/03/18 00:06 08/03/18 00:06 Intake & Output 08/01/18 08/02/18 08/03/18 06:59 06:59 06:59 Weight 76.6 kg General appearance: PRESENT: cooperative Head exam: PRESENT: atraumatic, normocephalic Eye exam: PRESENT: EOMI, PERRLA. ABSENT: scleral icterus Mouth exam: PRESENT: moist, neck supple Teeth exam: ABSENT: poor dentation Neck exam: ABSENT: meningismus, tenderness, thyromegaly, tracheal deviation Respiratory exam: PRESENT: clear to auscultation jaziel, unlabored. ABSENT: chest wall tenderness, tachypnea, wheezes Cardiovascular exam: PRESENT: RRR Pulses: PRESENT: normal radial pulses GI/Abdominal exam: PRESENT: soft, tenderness - Right upper quadrant. ABSENT: distended Rectal exam: PRESENT: deferred Extremities exam: ABSENT: clubbing Musculoskeletal exam: ABSENT: deformity Neurological exam: PRESENT: alert, awake, oriented to person, oriented to place, oriented to time, oriented to situation, CN II-XII grossly intact Psychiatric exam: ABSENT: agitated, anxious, depressed Skin exam: ABSENT: cyanosis, erythema, jaundice Results Laboratory Results: 08/02/18 16:20 08/02/18 16:20 08/02/18 08/02/18 08/02/18 16:20 16:20 16:20 WBC 10.1 RBC 4.76 Hgb 12.4 Hct 37.4 MCV 79 L MCH 26.1 L MCHC 33.2 RDW 15.6 H Plt Count 389 Seg Neutrophils % 78.5 H Lymphocytes % 10.4 L Monocytes % 5.7 Eosinophils % 4.8 Basophils % 0.6 Absolute Neutrophils 7.9 Absolute Lymphocytes 1.1 Absolute Monocytes 0.6 Absolute Eosinophils 0.5 Absolute Basophils 0.1 Sodium 137.8 Potassium 4.3 Chloride 100 Carbon Dioxide 28 Anion Gap 10 BUN 12 Creatinine 0.76 Est GFR ( Amer) > 60 Est GFR (Non-Af Amer) > 60 Glucose 96 Calcium 10.1 Total Bilirubin 0.3 AST 24 ALT 49 Alkaline Phosphatase 97 Total Protein 7.7 Albumin 4.5 Lipase 81.6 Urine Color YELLOW Urine Appearance SLIGHTLY-CLOUDY Urine pH 8.0 Ur Specific [place] 1.012 Urine Protein NEGATIVE Urine Glucose (UA) NEGATIVE Urine Ketones NEGATIVE Urine Blood SMALL H Urine Nitrite NEGATIVE Ur Leukocyte Esterase LARGE H Urine WBC (Auto) 15 Urine RBC (Auto) 2 Impressions: Abdomen Ultrasound 08/02/18 16:22 IMPRESSION: Cholelithiasis. No evidence cholecystitis. Assessment & Plan - Diagnosis (1) Cholecystitis Is this a current diagnosis for this admission?: Yes - Plan Summary Plan Summary: This is a patient with gallstones and progressive, severe, unrelenting right upper quadrant pain. She does have tenderness to palpation. I have reviewed her ultrasound and laboratory studies. I believe the patient is experiencing early acute cholecystitis. I will start the patient on Zosyn. I will admit her to the hospital. Plan for cholecystectomy tomorrow. Risks/benefits discussed, informed consent obtained, and all questions answered.
[2018-08-03] MEDS: KETOROLAC TROMETHAMINE INJ/PF 30 MG/1 ML SDV IV SCH ×3 (06:30→21:32)
[2018-08-03] MEDS: PIPERACILLIN SODIUM/TAZOBACTAM 3.375 GM in NORMAL SALINE 100 ML IV SCH ×4 (06:33→23:13)
[2018-08-03] MEDS: FAMOTIDINE INJ/PF 20 MG/2 ML SDV IV SCH ×2 (10:04→21:32)
[2018-08-03] MEDS ORDERED: LIDOCAINE 2% INJ-PF (20 MG/ML) 2 ML AMPUL ONE (10:39)
[2018-08-03] MEDS ORDERED: DEXAMETHASONE SOD PHOSPHATE INJ 4 MG/1 ML VIAL ONE (10:39)
[2018-08-03] MEDS ORDERED: ONDANSETRON HCL INJ/PF 4 MG/2 ML SDV ONE (10:39)
[2018-08-03] MEDS ORDERED: ROCURONIUM BROMIDE INJ 50 MG/5 ML VIAL IV ONE (10:39)
[2018-08-03] MEDS ORDERED: SUCCINYLCHOLINE CHLORIDE INJ 200 MG/10 ML VIAL ONE (10:39)
[2018-08-03] MEDS ORDERED: BUPIVACAINE HCL 0.25% /EPINEPHRINE INJ/PF 30 ML SDV ONE (12:51)
[2018-08-03] MEDS ORDERED: HYDROMORPHONE HCL INJ/PF 2 MG/ML AMPULE ONE (13:11)
[2018-08-03] MEDS ORDERED: MIDAZOLAM 2 MG/2 ML INJ ONE (13:12)
[2018-08-03] MEDS ORDERED: FENTANYL CITRATE INJ/PF 100 MCG/2 ML AMPUL ONE (13:12)
[2018-08-03] MEDS ORDERED: PROPOFOL INJ 200 MG/20 ML VIAL IV ONE (13:13)
[2018-08-03] MEDS ORDERED: FENTANYL CITRATE INJ/PF 100 MCG/2 ML AMPUL IV PRN ×3 (15:22)
[2018-08-03] MEDS ORDERED: PROMETHAZINE HCL INJ 25 MG/1 ML VIAL IV PRN (15:22)
[2018-08-03] MEDS ORDERED: DIPHENHYDRAMINE HCL 50 MG/ML VIAL IV PRN (15:22)
[2018-08-03] MEDS ORDERED: MEPERIDINE HCL/PF INJ 25 MG/1 ML DISP.SYRIN IV PRN (15:22)
[2018-08-03] MEDS ORDERED: PROMETHAZINE HCL INJ 25 MG/1 ML VIAL ONE (16:12)
[2018-08-03] MEDS ORDERED: NORMAL SALINE 1000 ML 1,000 ML IV PRN (16:20)
--- NOTE | 2018-08-03 16:54 | OPERATIVE REPORT E ---
Operative Report NAME: JANET GARCIA : 1990 AGE: 28Y DATE OF SURGERY: 08/03/2018 ROOM: 206 PREOPERATIVE DIAGNOSIS: ACUTE CHOLECYSTITIS. POSTOPERATIVE DIAGNOSIS: ACUTE CHOLECYSTITIS. OPERATION: LAPAROSCOPIC CHOLECYSTECTOMY. SURGEON: GIOVANNI GARBER M.D. ANESTHESIA: General. INDICATION: This is a 28-year-old female, complaining of severe right upper quadrant pain. She had a fatty meal prior to having the pain yesterday. She had an ultrasound of the gallbladder in the ED, which showed acute cholecystitis. PROCEDURE: After adequate general anesthesia, the patient was placed in supine position and the abdomen prepped and draped in the usual sterile fashion. Appropriate timeout was then called. An infraumbilical incision was made and the fascia identified and opened. Trocar was then inserted through the fascia into the abdominal cavity. CO2 insufflated to a pressure of 15 mmHg, and 3 other trocars were placed under direct vision, a 12 mm in the subxiphoid area and two 5 mm trocars in the right upper quadrant. The gallbladder was noted to be markedly distended and low intrahepatic. With the use of a long needle, the gallbladder was evacuated of bile. The needle was removed and the puncture site grasped with a grasper and pulled together with the liver. Next, the adhesions around the gallbladder were bluntly lysed with the use of grasper and later on with the use of harmonic luis. The cystic duct was identified and noted to be thickened and just slightly enlarge, and the cystic artery also identified. After the angle of safety identified, the cystic duct was then clipped with hemoclips and divided between the hemoclips. Cystic artery also clipped and divided with the harmonic luis between the clip and the gallbladder. The gallbladder was then taken off the liver bed with the use of harmonic luis. A lot of edema was noted, indicating acute cholecystitis. The gallbladder was then completely removed from the liver bed and placed in an Endobag and pulled out through the umbilical port. No obvious palpable stone in the gallbladder specimen noted. However, the gallbladder was noted to be thickened and edematous. The liver bed was then irrigated and reinspected, and no active bleeding noted. However, because of the inflammation and oozing, a Surgicel was then placed over the liver bed to make sure of hemostasis. All the trocars were then removed and CO2 allowed to come out of the trocar sites. The fascial defect was then closed with [id number] suture using 0 Vicryl, and all the skin incisions closed with running subcuticular closure using 4-0 Vicryl undyed. Steri-Strips placed over the operative sites. Needle, instrument, and sponge count were all correct. Estimated blood loss about 15 mL. DICTATING PHYSICIAN: GIOVANNI GARBER M.D. [id number] PHY#: [id number] ID: [id number] JOB#: [id number] ACCT: [id number] cc:GIOVANNI GARBER M.D. > MTDD
[2018-08-04] MEDS: PIPERACILLIN SODIUM/TAZOBACTAM 3.375 GM in NORMAL SALINE 100 ML IV SCH (05:22)
[2018-08-04] MEDS: KETOROLAC TROMETHAMINE INJ/PF 30 MG/1 ML SDV IV SCH (05:26)
[2018-08-04 06:29] LABS: ABSOLUTE LYMPHOCYTES (AUTO) 0.9 10^3/uL (0.5-4.7); ABSOLUTE MONOCYTES (AUTO) 0.6 10^3/uL (0.1-1.4); ABSOLUTE NEUT (AUTO) 6.2 10^3/uL (1.7-8.2); BASOPHILS % (AUTO) 0.2 % (0-2); EOSINOPHILS % (AUTO) 0.5 % (0-6); HEMATOCRIT 35.5 % (36.0-47.0); HEMOGLOBIN 11.6 g/dL (12.0-15.5); LYMPHOCYTES % (AUTO) 11.5 % (13-45); MEAN CORPUSCULAR HEMOGLOBIN 25.9 pg (27.0-33.4); MEAN CORPUSCULAR HGB CONC 32.8 g/dL (32.0-36.0); MEAN CORPUSCULAR VOLUME 79 fl (80-97); MONOCYTES % (AUTO) 8.4 % (3-13); PLATELET COUNT 328 10^3/uL (150-450); RED BLOOD COUNT 4.49 10^6/uL (3.72-5.28); RED CELL DISTRIBUTION WIDTH 15.4 % (11.5-14.0); SEGMENTED NEUTROPHILS % (AUTO) 79.4 % (42-78); TOTAL CELLS COUNTED % (AUTO) 100 %; WHITE BLOOD COUNT 7.7 10^3/uL (4.0-10.5)
[2018-08-04 06:59] LABS: ALANINE AMINOTRANSFERASE 600 U/L (9-52); ALBUMIN 3.5 g/dL (3.5-5.0); ALKALINE PHOSPHATASE 322 U/L (38-126); ANION GAP 11 (5-19); ASPARTATE AMINO TRANSFERASE 343 U/L (14-36); BILIRUBIN,DIRECT 3.9 mg/dL (0.0-0.4); BILIRUBIN,TOTAL 4.8 mg/dL (0.2-1.3); BLOOD UREA NITROGEN 10 mg/dL (7-20); CALCIUM 9.5 mg/dL (8.4-10.2); CARBON DIOXIDE 22 mmol/L (22-30); CHLORIDE 107 mmol/L (98-107); GLUCOSE 81 mg/dL (75-110); POTASSIUM 4.5 mmol/L (3.6-5.0); SODIUM 139.9 mmol/L (137-145); TOTAL PROTEIN 6.2 g/dL (6.3-8.2)
[2018-08-04 08:52] VITALS: BP 127/56
[2018-08-04] MEDS: FAMOTIDINE INJ/PF 20 MG/2 ML SDV IV SCH (09:53)
== END 2018-08-04 12:47 | disposition home or self-care (01) ==
LOC: ER 15:31 → EH 08-03 01:26 → 2N 08-03 09:25
PROVIDERS: ATTEND Surgery
PROC: 0FT44ZZ Resection of Gallbladder, Percutaneous Endoscopic Approach (ICD-10-PCS; principal; 2018-08-03 14:30)
DX: K80.12 Calculus of gallbladder with acute and chronic cholecystitis without obstruction (principal); K21.9 Gastro-esophageal reflux disease without esophagitis; F32.9 Major depressive disorder, single episode, unspecified; Z79.899 Other long term (current) drug therapy
CPT/HCPCS: 96376; 99285; 96361; 96374; 96375; 36415 ×2; 87086; 87205; 87070; 83690; 85025 ×2; 81025; 87075; 80053 ×2; 81001; 88304 ×2; 76705; 47562; G0378 ×3; J2250; J3490 ×4; J1100; J3010; J1885 ×3; J2270 ×2; J1170; J2550; J0330; J2405 ×2; J7030; J2704; S0028; J2543 ×2; 790

== ENCOUNTER 2018-10-05 07:29 | Emergency (ER) | payer OTHER ==
[2018-10-05] MEDS ORDERED: LIDOCAINE 5% (700 MG) TRANSDERMAL ADH..PATCH TP ONE (08:59)
[2018-10-05 09:28] LABS: ABSOLUTE EOSINOPHILS # (AUTO) 0.2 10^3/uL (0.0-0.6); ABSOLUTE LYMPHOCYTES (AUTO) 1.2 10^3/uL (0.5-4.7); ABSOLUTE MONOCYTES (AUTO) 0.5 10^3/uL (0.1-1.4); ABSOLUTE NEUT (AUTO) 5.7 10^3/uL (1.7-8.2); BASOPHILS % (AUTO) 0.6 % (0-2); EOSINOPHILS % (AUTO) 3.1 % (0-6); HEMATOCRIT 40.4 % (36.0-47.0); HEMOGLOBIN 13.2 g/dL (12.0-15.5); LYMPHOCYTES % (AUTO) 15.7 % (13-45); MEAN CORPUSCULAR HEMOGLOBIN 25.6 pg (27.0-33.4); MEAN CORPUSCULAR HGB CONC 32.6 g/dL (32.0-36.0); MEAN CORPUSCULAR VOLUME 79 fl (80-97); MONOCYTES % (AUTO) 6.3 % (3-13); PLATELET COUNT 358 10^3/uL (150-450); RED BLOOD COUNT 5.14 10^6/uL (3.72-5.28); RED CELL DISTRIBUTION WIDTH 16.1 % (11.5-14.0); SEGMENTED NEUTROPHILS % (AUTO) 74.3 % (42-78); TOTAL CELLS COUNTED % (AUTO) 100 %; WHITE BLOOD COUNT 7.7 10^3/uL (4.0-10.5)
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
[2018-10-05 09:46] LABS: INTERNATIONAL RATION (INR) 0.96; PROTHROMBIN TIME 13.3 SEC (11.4-15.4)
[2018-10-05 09:52] LABS: ALANINE AMINOTRANSFERASE 33 U/L (9-52); ALBUMIN 4.3 g/dL (3.5-5.0); ALKALINE PHOSPHATASE 84 U/L (38-126); ANION GAP 8 (5-19); ASPARTATE AMINO TRANSFERASE 21 U/L (14-36); BILIRUBIN,DIRECT 0.2 mg/dL (0.0-0.4); BILIRUBIN,TOTAL 0.5 mg/dL (0.2-1.3); BLOOD UREA NITROGEN 16 mg/dL (7-20); CALCIUM 9.9 mg/dL (8.4-10.2); CARBON DIOXIDE 24 mmol/L (22-30); CHLORIDE 107 mmol/L (98-107); GLUCOSE 87 mg/dL (75-110); LIPASE 69.8 U/L (23-300); POTASSIUM 4.5 mmol/L (3.6-5.0); SODIUM 139.2 mmol/L (137-145); TOTAL PROTEIN 7.3 g/dL (6.3-8.2)
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
[2018-10-05 12:18] VITALS: BP 115/49
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
== END 2018-10-05 11:45 | disposition home or self-care (01) ==
LOC: ER 07:29
DX: S20.211A Contusion of right front wall of thorax, initial encounter (principal); R51 Headache; M25.511 Pain in right shoulder; R07.81 Pleurodynia; V89.2XXA Person injured in unspecified motor-vehicle accident, traffic, initial encounter
CPT/HCPCS: 36415; 71046; 74177; 80053; 83690; 84703; 85025; 85610; 99284